=== PATIENT | female | born 1995 | race Hispanic/Latino ===

== ENCOUNTER 2021-01-14 16:58 | Emergency (ER) | payer OTHER ==
[~2021-01-14] VITALS: Ht 165.1 cm; Wt 63.5 kg
[2021-01-14 17:00] VITALS: BP 100/64
[2021-01-14 18:17] LABS: APPEARANCE,URINE Clear (CLEAR); BILIRUBIN,URINE Negative (NEGATIVE); COLOR,URINE Yellow (YELLOW); GLUCOSE, URINE (UA) Negative (NEGATIVE); KETONES,URINE Negative (NEGATIVE); LEUKOCYTE ESTERASE ,URINE Negative (NEGATIVE); NITRATE,URINE Negative (NEGATIVE); OCCULT BLOOD,URINE Trace (NEGATIVE); PROTEIN,URINE Negative (NEGATIVE); UROBILINOGEN,URINE 0.2 mg/dL (0.2-1.0)
[2021-01-14 18:19] LABS: HCG,QUAL RESULT NEGATIVE (NEGATIVE)
[2021-01-14 18:27] LABS: BACTERIA,URINE Rare /HPF (None Seen); RBC,URINE 0-1 /HPF (0-1); SQUAMOUS EPITHELIAL CELL,UR Rare /HPF (0-2); WBC,URINE 0-1 /HPF (0-1)
[2021-01-14] MEDS ORDERED: ACET-2247 PO (19:11)
[2021-01-14] MEDS ORDERED: AZIT500T PO (19:11)
== END 2021-01-14 19:25 | disposition home or self-care (01) ==
LOC: EDH 16:58
DX: U07.1 COVID-19 (principal)
CPT/HCPCS: 71045; 81001; 81025; 87635; 87804 ×2; 87880; 99284; C9803